=== PATIENT | female | born 1935 | race Caucasian/White ===

== ENCOUNTER 2023-11-01 12:36 | Emergency (ER) | payer OTHER, SELFPAY ==
[2023-11-01 12:41] VITALS: BP 144/95; BMI 27.2
[2023-11-01 13:34] LABS: % Basophils 0.5 % (0-2); % Eosinophils 1.2 % (0-6); % Immature Granulocytes 0.4 % (0-0.5); % Lymphocytes 18.1 % (20.5-51.1); % Monocytes 8.5 % (1.7-9.3); % Neutrophils 71.3 % (42.2-75.2); Absolute Basophils 0.1 10^3/uL (0-0.2); Absolute Eosinophils 0.1 10^3/uL (0-0.7); Absolute Lymphocytes 1.9 10^3/uL (1.2-3.4); Absolute Monocytes 0.9 10^3/uL (0.1-0.6); Absolute Neutrophils 7.5 10^3/uL (1.4-6.5); Hematocrit 38.1 % (37.0-47.0); Hemoglobin 13.5 g/dL (12.0-16.0); Mean Corp Hgb Conc. 35.4 g/dL (33.0-37.0); Mean Corpuscular Volume 90.3 fL (81.0-99.0); Mean Platelet Volume 11.7 fL (7.4-10.4); Nucleated Red Blood Cells % 0 %; Platelet Count 142 10^3/uL (130-400); Red Blood Cell Count 4.22 10^6/uL (4.20-5.40); Red Cell Dist. Width 13.5 % (11.5-14.5); White Blood Cell Count 10.6 10^3/uL (4.8-10.8)
--- NOTE | 2023-11-01 13:37 | ED.GENMED ---
History of Present Illness
General
Chief Complaint: Dizziness
Source: patient and family
Exam Limitations: none
Time Seen by Provider: 11/01/23 13:37
Nursing documentation reviewed up to this point in time: agreed with
Travel History
Have you had any contact with someone who has COVID-19?: No
Do you have any symptoms of coronavirus? Fever > 100 degrees, chills, cough, shortness of breath, sore throat, loss of taste or smell, muscle aches, or headache?: No
History of Present Illness
History of Present Illness:
88-year-old female from [facility] where she has her own room, with history of A-fib states she awakened in middle of night with right side neck 'soreness,' got up felt dizzy, walked to and from bathroom feeling 'a little unsteady' went
back to bed and slept. Got up this a.m. had breakfast and around 8:30 felt dizzy again while walking in her home. Dizziness lasting no more than a minute. She has had no dizziness since but right side neck still sore.
Denies CP, SOB, abd pain, n/v/d/c. Appetite has been good.
Past History
Past History
ED Past Medical History: Arrthythmia (a fib)
ED Past Surgical History: None
Social History
Tobacco: Non-smoker
Alcohol: None
Personal:
Living: assisted living
Review of Systems
Review of Systems
Allergies reviewed?: Yes
All Other Systems: ROS reviewed and negative except as documented in HPI and ROS
Constitutional: Denies fever or fatigue
EENT: Denies sore throat
Respiratory: Denies trouble breathing
Cardiac: Denies chest pain, diaphoresis, palpitations or syncope
ABD/GI: Denies abdominal pain, nausea, vomiting, diarrhea, bloody stools, black stools or anorexia
: Denies dysuria, frequency, difficulty voiding or urgency
Musculoskeletal: Reports neck pain; Denies edema or back pain
Skin: Reports no symptoms
Neurological: Reports dizzy (2 episodes dizziness in past 12 hours lasting about a minute, none since 8:30 this a.m.); Denies headache, weakness or numbness
Phy Exam
Physical Exam
Physical Exam:
GENERAL: No acute distress. A&Ox3.
CONSTITUTIONAL: Afebrile.
EYES: PERRL, conjunctivae normal, no nystagmus
Neck: Supple
ENMT: moist mucus membranes, Pharynx nl, TMs normal
RESPIRATORY: Regular respirations, nonlabored, lungs clear.
CARDIOVASCULAR: Regular rate and rhythm, no murmurs, no rubs.
GI: Soft, nontender, normal BS
MUSCULOSKELETAL: Tender to palpate right neck ST. No spinal bony tenderness. Full ROM with aggravation of pain more when rotating head to right. Moves with ease. Well perfused. No edema.
SKIN: Warm, dry, pink
PSYCH: Normal mood and affect. Well kept, interactive and appropriate
NEUROLOGIC: Awake, alert and oriented. Speech clear. CN 2-10 intact. Finger to nose intact. No focal neurological deficits
Course
Orders/Labs/Results
Orders:
Orders
11/01/23 12:40
Electrocardiogram (*1) Urgent
Reason for Study: Other
Other Reason for Exam: Possible Stroke
Cardiac Monitoring- Treatment ONCE
Vital Signs As Directed
Frequency: Other
Weight As Directed
Frequency: Once
Comment: ZERO STRETCHER SCALE FOR ACCURATE WEIGHT
11/01/23 12:41
EKG- Treatment ONCE
11/01/23 13:05
Complete Blood Count/With Diff Urgent
Comprehensive Metabolic Panel Urgent
Troponin I Urgent
11/01/23 13:57
CT Head W/o Iv Contrast Urgent
Comment:
Reason For Exam: episode dizziness, on eliquis
11/01/23 13:58
Urinalysis Reflex To Culture Urgent
Date Specimen was Collected: 11/01/23
Time Specimen was Collected: 13:57
Urine Microscopic Reflex Cult Urgent
Urine Culture Urgent
AMRIK Source: U
Specimen Description:
Date Specimen was Collected: 11/01/23
Time Specimen was Collected: 13:57
11/01/23 16:00
VANCOMYCIN Pharmacy to Dose [VANCOCIN Pharmacy to Dose] 1 each Pharmacy To Prepare [Call Pharmacy To Prepare] 0 ml IV PER PROTOCOL
Abnormal Lab Results
11/01/23 11/01/23
13:05 13:58
MCH 32.0 H pg
(27.0-31.0)
MPV 11.7 H fL
(7.4-10.4)
Absolute Neuts (auto) 7.5 H 10^3/uL
(1.4-6.5)
Absolute Monos (auto) 0.9 H 10^3/uL
(0.1-0.6)
Lymphocytes % 18.1 L %
(20.5-51.1)
BUN 18 H mg/dl
(7-17)
Glucose 121 H mg/dl
(70-99)
Leukocyte Esterase Rfl 1+ A
(Negative)
11/01/23 13:05
11/01/23 13:05
Vital Signs
Initial and Last Documented VS:
Initial Vital Signs
Temp Pulse Resp BP Pulse Ox
98.2 F 88 17 144/95 98
11/01/23 12:41 11/01/23 12:41 11/01/23 12:41 11/01/23 12:41 11/01/23 12:41
Last Documented Vital Signs
Temp Pulse Resp BP Pulse Ox
98.2 F 88 17 144/95 98
11/01/23 12:41 11/01/23 12:41 11/01/23 12:41 11/01/23 12:41 11/01/23 12:41
MDM/Problems Addressed
Differential Diagnosis Includes:
BPPV,
MDM/Problems Addressed:
88-year-old female from [facility] where she has her own room, with history of A-fib states she awakened in middle of night with right side neck 'soreness,' got up felt dizzy, walked to and from bathroom feeling 'a little unsteady' went
back to bed and slept. Got up this a.m. had breakfast and around 8:30 felt dizzy again while walking in her home. Dizziness lasting no more than a minute. She has had no dizziness since but right side neck still sore.
Patient had a dentist appointment yesterday and was sitting in a dental chair for a long period of time having her bottom teeth cleaned.
Denies CP, SOB, abd pain, n/v/d/c. Appetite has been good.
EKG: A-fib, rate 90
2:00 PM
CBC normal
CMP normal
UA unremarkable
3:[address] without contrast radiology report read: IMPRESSION:
1. No acute intracranial abnormalities appreciated.
2. Mild atrophy and moderate suspected chronic small vessel change.
Right neck pain is mostly from muscle strain from staying in a prolonged position while having her teeth cleaned yesterday.
Pt OOB and ambulating well with normal gait.
Stable for discharge.
*Critical Care Note
Total Time (30-74mins, 75-104mins- exclusive of procedures): Not Applicable
ED Attending Note
-
Portions of this chart may have been created with voice recognition software.� Occasional wrong word or��sound alike� substitutions may have occurred due to the inherent limitations of voice recognition software.
Discharge Plan
Departure
Patient Disposition: Home (Routine Discharge)
Date of Disposition: 11/01/23
Time of Disposition: 15:33
Patient with high blood pressure during this ER visit?: No
Condition: Good
Discharge Problem:
Episode of dizziness, Neck muscle strain
Instructions: Cervical Muscle Strain, Dizziness
Referrals:
Jacqueline Burgos [Other] - As needed
UNKNOWN - PT DOES,NOT KNOW [Family Provider] -
Activity Restrictions/Additional Instructions:
As we discussed, your workup here today shows nothing worrisome.
Interventions
Interventions:
*Risk Screen - Suicide Last Done: 11/01/23 12:41
*General Assessment Last Done: 11/01/23 12:41
*Neglect/Abuse Screening Last Done: 11/01/23 12:41
ED- Fall Risk Assessment Last Done: 11/01/23 15:54
*ED COVID-19 Vaccine History Last Done: 11/01/23 12:41
*Nursing Disposition Last Done: 11/01/23 15:54
ED- Neurological Assessment Last Done: 11/01/23 12:51
Discharge Date and Time
Discharge Date/Time: 11/01/23 15:55
Print Language: TELUGU
[2023-11-01 13:50] LABS: ALT (SGPT) 19 U/L (0-35); AST (SGOT) 21 U/L (14-36); Alkaline Phosphatase 101 U/L (38-126); Blood Urea Nitrogen 18 mg/dl (7-17); Calcium 9.3 mg/dl (8.4-10.2); Carbon Dioxide 27 mmol/L (22-30); Chloride 103 mmol/L (98-107); Estimated Creatinine Clearance 39 ml/min; Glucose 121 mg/dl (70-99); Potassium 3.7 mmol/L (3.5-5.1); Sodium 139 mmol/L (135-145); Total Bilirubin 0.9 mg/dl (0.2-1.3); Total Protein 6.6 g/dl (6.3-8.2); eGFR 54.53
[2023-11-01 13:59] LABS: Troponin I < 0.012 ng/ml
[2023-11-01 14:19] LABS: Urine Albumin Negative (Neg - Trace); Urine Bilirubin Negative (Negative); Urine Character Clear (Clear); Urine Color Yellow; Urine Glucose Negative (Negative); Urine Ketone Negative (Negative); Urine Leukocyte 1+ (Negative); Urine Nitrite Negative (Negative); Urine Occult Blood Negative (Negative); Urine Specific Gravity 1.005 (<1.030); Urine Urobilinogen Negative (Neg - 1+)
[2023-11-01 15:05] LABS: Urine Amorphous Seen; Urine Mucus Few
[2023-11-01 15:06] LABS: Urine Granular Cast 0-2 /LPF (0)
[2023-11-01 15:09] LABS: Urine Red Blood Cell 0-2 /HPF (0-2); Urine White Cell 0-2 /HPF (0-5)
== END 2023-11-01 15:55 | disposition home or self-care (01) ==
LOC: EMR 12:36
PROVIDERS: Registered Nurse; EMERGENCY PHYSICIAN Emergency Medicine
DX: S16.1XXA Strain of muscle, fascia and tendon at neck level, initial encounter (principal); Y93.01 Activity, walking, marching and hiking; R42 Dizziness and giddiness; I48.91 Unspecified atrial fibrillation; Z79.01 Long term (current) use of anticoagulants
CPT/HCPCS: 99284; 70450; 80053; 81003; 81015; 84484; 85025; 87086; 93005

== ENCOUNTER 2024-05-26 12:49 | Inpatient (IN) | payer OTHER, SELFPAY ==
[2024-05-26] VITALS (21 sets, daily range): BP systolic 104–172; BP diastolic 64–134; BMI 26.6
--- NOTE | 2024-05-26 07:45 | ED.GENMED ---
History of Present Illness
General
Chief Complaint: Heart Rate Problem
Source: patient and ambulance crew
Exam Limitations: none
Time Seen by Provider: 05/26/24 07:36
History of Present Illness
History of Present Illness:
89-year-old female presents emergency department due to heart racing. She has a history of atrial fibrillation. She presented via EMS with rapid atrial fibrillation.
Past History
Past History
ED Past Medical History: Arrthythmia (a fib)
ED Past Surgical History: None
Social History
Tobacco: Non-smoker
Alcohol: None
Personal:
Living: assisted living
Phy Exam
Physical Exam
Physical Exam:
Physical Exam
General: no apparent distress, not acutely ill
Neck: supple. no meningeal signs. normal posterior pharynx
Heart: s1/s2 tachycardia, irregular rhythm, no murmur. equal radial
pulses.
HEENT: Pupils equal round reactive to light, EOMI
Lungs: no acute respiratory distress. clear bilaterally
Abdomen: normal bowel sounds. not tender. no CVAT
Neuro: alert and oriented. no focal neurological deficits cranial nerves II through XII intact
Skin: no rash
Psychiatric: well kept. interactive and cooperative
Extremities: no edema. no calf tenderness. negative homans. good distal pulses
Course
Orders/Labs/Results
Orders:
Orders
05/26/24 07:37
Electrocardiogram (*1) Urgent
Reason for Study: Chest Pain
EKG- Treatment ONCE
05/26/24 07:53
Basic Metabolic Panel Urgent
Complete Blood Count/With Diff Urgent
NT-proBNP Urgent
PTT Urgent
TSH Urgent
Comment: ADD ON
Troponin I Urgent
Diltiazem 125 mg/125 ml Nss [Cardizem] 125 mg in 125 ml IV NOW
Initial dose in mg/hr, then titrate:: 5
Titrate to keep:: Heart rate 80-100 bpm
Titrate by mg/hr:: 5 mg/hr
Frequency of titrations (minutes):: 15
Maximum dose in mg/hr:: 15
Diltiazem HCl [Cardizem] 5 mg IV NOW STA
05/26/24 12:30
Admit/Transfer Patient As Directed
Co-Sign Provider:
Level of Care: Inpatient admission
Assign to:: IVU
Physician / Group: Shirin
Diagnosis: Rapid Atrial Fib
Reason for Hospitalization: Rate control, cardiology consult
Expected length of stay greater than two midnights?: Yes
ELOS- Estimated Length of Stay in days: 2
I certify the patient meets the requirements for IP care: Yes
05/26/24 12:31
PRN Pain Medication Management As Directed
May give lesser potent ordered pain med per pt: Yes
preference::
Protocol:: Medication orders for pain may be administered in a
manner that supports deferring to patient preference
when the pt is:
- Requesting an ordered lesser potent pain medication.
Least to most potent pain medications are defined
as: acetaminophen < NSAID < tramadol < opioids
(morphine, oxycodone, hydromorphone).
- Requesting a lesser dose of the same medication IF
ORDERED.
- Requesting a less intrusive route of administration
if both routes are prescribed by the provider (PO <
IV).
05/26/24 12:32
Code Status As Directed
Resuscitation Status: Full Code
05/26/24 12:34
Add On- LAB Routine
Tests Added?: TSH
Abnormal Lab Results
05/26/24
07:53
MCH 32.3 H pg
(27.0-31.0)
RDW 14.6 H %
(11.5-14.5)
Plt Count 125 L 10^3/uL
(130-400)
MPV 12.4 H fL
(7.4-10.4)
BUN 19 H mg/dl
(7-17)
Glucose 116 H mg/dl
(70-99)
05/26/24 07:53
05/26/24 07:53
Vital Signs
Initial and Last Documented VS:
Initial Vital Signs
Temp
97.8 F
05/26/24 07:29
Last Documented Vital Signs
Temp Pulse Resp BP Pulse Ox
97.8 F 110 14 168/102 97
05/26/24 07:29 05/26/24 11:15 05/26/24 11:15 05/26/24 11:30 05/26/24 11:15
MDM/Problems Addressed
Differential Diagnosis Includes:
Atrial fibrillation, electrolyte abnormality
MDM/Problems Addressed:
89-year-old female with rapid atrial fibrillation. Diltiazem drip. Admit to hospitalist.
Chronic conditions affecting care: Arrhythmia
Acute Exacerbation and/or Progression of Chronic Illness: Arrhythmia
*Pulse Oximetry
Patient hypoxic: no
*EKG
Interpreted by ED Provider?: Yes
EKG Intrepretation Date: 05/26/24
EKG Intrepretation Time: 07:42
Interpretation: abnormal
Comparison EKG: no comparison EKG present
Heart Rate: 118
Rate: tachycardiac
Rhythm: a-fib
[place]: normal axis
Interval: normal interval
QRS Pattern: normal QRS
Ischemia: no ischemia
*Affirmative Action Officer Interpretation
Rate: tachycardiac
Interpretation: abnormal
Heart Rate: 120
Rhythm: a-fib
*Critical Care Note
Total Time (30-74mins, 75-104mins- exclusive of procedures): 30
comment:
Critical care statement: A total of 30 minutes of critical care time was provided for this patient. This includes management of unstable vital signs, evaluation of the patient at bedside, reviewing the patient's pertinent medical records, discussion
with consultants, review of old EKGs and review of pertinent medical records. This time with separate from time utilized to perform the aforementioned documented procedures
Patient Management
Social determinants of health affecting care: Living situation
Discussion with other providers: Hospitalist
Escalation/DeEscalation of care consider admission/obs:
Admit indicated
ED Attending Note
-
Portions of this chart may have been created with voice recognition software.� Occasional wrong word or��sound alike� substitutions may have occurred due to the inherent limitations of voice recognition software.
Discharge Plan
Departure
Patient Disposition: Admit
Date of Disposition: 05/26/24
Time of Disposition: 11:15
Admit to: IMU
Presentation/result/management discussed w/ accepting MD/DO: Hospitalist
Patient with high blood pressure during this ER visit?: Yes
Condition: Fair
Discharge Problem:
Atrial fibrillation with RVR
Prescriptions:
No Action
diltiazem HCl 180 mg capsule,extended release 24hr
180 mg PO DAILY
simvastatin 10 mg tablet
10 mg PO DAILY
metoprolol tartrate 50 mg tablet
50 mg PO BID
furosemide 20 mg tablet
20 mg PO DAILY
Eliquis 5 mg tablet
5 mg PO BID
Referrals:
UNKNOWN - PT DOES,NOT KNOW [Family Provider] -
Discharge Date and Time
Print Language: [place] ISLAND[place]
[2024-05-26] MEDS: CARDIZEM 125 IV ×2 (08:01→17:41)
[2024-05-26] MEDS: CARDIZEM 5 MG IV (08:01)
[2024-05-26 08:12] LABS: % Basophils 1.2 % (0-2); % Immature Granulocytes 0.2 % (0-0.5); % Lymphocytes 37.6 % (20.5-51.1); % Monocytes 9.2 % (1.7-9.3); % Neutrophils 47.8 % (42.2-75.2); Absolute Basophils 0.1 10^3/uL (0-0.2); Absolute Eosinophils 0.2 10^3/uL (0-0.7); Absolute Monocytes 0.5 10^3/uL (0.1-0.6); Absolute Neutrophils 2.5 10^3/uL (1.4-6.5); Hematocrit 43.9 % (37.0-47.0); Mean Corp Hgb Conc. 34.2 g/dL (33.0-37.0); Mean Corpuscular Hgb 32.3 pg (27.0-31.0); Mean Corpuscular Volume 94.6 fL (81.0-99.0); Mean Platelet Volume 12.4 fL (7.4-10.4); Nucleated Red Blood Cells % 0 %; Platelet Count 125 10^3/uL (130-400); Red Blood Cell Count 4.64 10^6/uL (4.20-5.40); Red Cell Dist. Width 14.6 % (11.5-14.5); White Blood Cell Count 5.2 10^3/uL (4.8-10.8)
[2024-05-26 08:16] LABS: APTT 27.9 Sec (23.4-35.0)
[2024-05-26 08:26] LABS: Blood Urea Nitrogen 19 mg/dl (7-17); Calcium 9.3 mg/dl (8.4-10.2); Carbon Dioxide 25 mmol/L (22-30); Chloride 107 mmol/L (98-107); Estimated Creatinine Clearance 42 ml/min; Glucose 116 mg/dl (70-99); Sodium 141 mmol/L (135-145); eGFR > 60.00
[2024-05-26 08:33] LABS: NT-proBNP 2090 pg/ml; Troponin I < 0.012 ng/ml
--- NOTE | 2024-05-26 12:34 | HPS.HSE ---
Family Physician
-
Family Physician: NOT KNOW UNKNOWN - PT DOES
Chief Complaint
-
Chest pain
History of Present Illness
89-year-old female woke up this morning with sharp substernal chest pain. Mild shortness of breath. Symptoms lasted for 10 minutes. She called 911.
Denies history of the same in the past.
I spoke with patient's daughter on the phone and she mentioned that her the patient's relations manager recently increased the diltiazem dose to 240 mg daily. However the patient ran out and likely had extra supply of the 180 mg which she was taking
prior to coming in. Daughter also also mentioned that she is concerned that her mother may have forgotten to take some doses as she does recently have memory impairment.
Medical History
Past Medical History
Past Medical History: Reports Other
Additional Past Medical History:
Atrial fibrillation
Essential hypertension
Hyperlipidemia
hx pelvic fracture
Past Surgical History: Reports None
Social History
Tobacco: Non-smoker
Alcohol: Daily (2 to 4 ounces of wine daily)
Drug: None
Personal: Single
Living: Assisted Living
Employment: Not Employed
Family History
Family History: Not pertinent
Allergies / Home Medications
Allergies reflects when Allergies were last updated in [facility].
Home Medications with original date entered in [facility]
Allergy/Medication List:
Allergies
Allergy/AdvReac Type Severity Reaction Status Date / Time
No Known Allergies Allergy Verified 05/26/24 07:37
Home Medications
apixaban 5 mg tablet (Eliquis) 5 mg PO BID Blood Clot Prevention/Tx 05/26/24
diltiazem HCl 180 mg capsule,extended release 24 hr 180 mg PO DAILY Arrhythmia/BP 05/26/24
furosemide 20 mg tablet 20 mg PO DAILY Fluid Retention/Swelling 05/26/24
metoprolol tartrate 50 mg tablet 50 mg PO BID Heart Disease/BP 05/26/24
simvastatin 10 mg tablet 10 mg PO DAILY High Cholesterol 05/26/24
Review of Systems
-
History Source: Patient
A 12 point ROS was completed and negative except as noted: Yes
Cardiac: Reports Chest Pain
Physical Exam
Vital Signs
Vital Signs
Temp Pulse Resp BP Pulse Ox
97.8 F 110 14 168/102 97
05/26/24 07:29 05/26/24 11:15 05/26/24 11:15 05/26/24 11:30 05/26/24 11:15
Physical Exam
General: Well Developed, Well Nourished, No Apparent Distress and Comfortable
HEENT: Anicteric and Moist mucous membranes
Respiratory: Clear
Cardiac: S1/S2, Irregular Rhythm and Tachycardia
Breast: Deferred by me
GI: Soft, Non Tender and Non Distended
Genito-urinary: Deferred by me
Musculoskeletal: No Clubbing, No Cyanosis and No Edema
Skin: Warm and Dry
Neuro: Awake and Alert
Hematologic/Lymphatic: No Lymphadenopathy
Psych: Calm
Laboratory Results
-
05/26/24 07:53
05/26/24 07:53
Laboratory Results
APTT 27.9 Sec (23.4-35.0) 05/26/24 07:53
Total Bilirubin Cancelled 05/26/24 07:53
AST Cancelled 05/26/24 07:53
ALT Cancelled 05/26/24 07:53
Alkaline Phosphatase Cancelled 05/26/24 07:53
Troponin I < 0.012 ng/ml 05/26/24 07:53
Impression/Plan
-
Rapid atrial fibrillation -suspect baseline paroxysmal atrial fibrillation. Admit to IVU, continue IV Cardizem infusion, consult cardiology. Check TSH.
Trigger for rapid atrial fibrillation possibly due to missed doses of Cardizem, also possibly due to inadequate dosage as she is supposed to be on 240 mg daily but according to family was taking 180 mg daily due to the fact that she did not have a
refill on the higher dose.
Discussed importance of compliance with anticoagulation with Eliquis for stroke prophylaxis with patient's daughter in great detail.
Daughter plans to ensure better compliance moving forward once she is discharged.
Patient does live in longterm facility but the facility requires her to take her own medications.
Essential hypertension with hypertensive urgency -resume metoprolol, diltiazem, furosemide.
Hyperlipidemia - Zocor.
Memory impairment -needs formal testing for dementia once discharge. Discussed with daughter.
Full code
[2024-05-26] MEDS: LOPRESSOR 50 MG PO ×2 (13:09→19:57)
--- NOTE | 2024-05-26 13:37 | CON.CAR ---
Addendum entered and electronically signed by Osvaldo Teran MD 05/26/24 14:50:
I saw and examined the patient.
The RESIDENTIAL FIELD MANAGER or PA's note was reviewed and I agree with the note.
Comment: General: Well developed, well nourished in NAD.
Neck: Supple, no JVD, HJR, carotids +2 B/L, no bruits bilaterally.
Heart: Non displaced PMI, irregular, no murmurs, No S3, S4, no rubs.
Lungs: Scattered rhonchi
Extremities: No clubbing, cyanosis or edema bilaterally.
Neuro: Grossly nonfocal, awake, alert and oriented x3.
She has a history of permanent A-fib on chronic Eliquis, chronic diastolic CHF, hyperlipidemia. She is followed at [facility] by Dr. Newman. She woke up 6 AM this morning with right-sided chest pain and noted to be in rapid A-fib.
She will be admitted. Will increase Cardizem to 240 mg daily and continue Lopressor. May need to consider amiodarone for rate control. Continue Eliquis. Discussed with daughter at bedside.
Original Note:
Consultation
Consultation Request
Date/Time Consultation Performed: 05/26/24
Requesting Provider: Dr. Carpio
Performing Provider: [place] PA-C for Dr. Teran
Reason for Consultation: afib with RVR
Medical History
-
Chief Complaint: CP
History of Present Illness:
Patient is an 89 yo F with PMH of permanent atrial fibrillation, chronic OAC with eliquis, chronic diastolic CHF, HLD who is followed by Dr. Newman of [facility] cardiology. She reports she just saw him last Saturday and was feeling well, was noted to be in
afib during visit. Reports this morning around 6AM woke up with R sided chest pain. Reports 'I have never had a heart attack, but assumed that must be what it feels like' and came to ER. She was noted to be in afib with RVR. Reports currently chest
pain free, unclear what made the pain go away. Denies associated radiation of pain to back, neck, jaw, arms, N/V, diaphoresis/clamminess, SOB, lightheadedness. Reports has never had pain like that before. Trop negative x1. Cardiology consulted for
evaluation.
PMH:
Atrial fibrillation, suspected persistent
Chronic OAC with eliquis
Chronic diastolic CHF
Form of dextrocardia
HTN
HLD
Former smoker
Past Medical History
Past Medical History: Other (in HPI)
Social History
Tobacco: Former Smoker
Alcohol: Occasional
Living: Assisted Living (in independent apartment)
Family History
Family History: Early CAD (in father)
Allergies / Home Medications
Allergy/AdvReac Type Severity Reaction Status Date / Time
No Known Allergies Allergy Verified 05/26/24 07:37
�Medication �Instructions �Recorded �Confirmed �Type
apixaban 5 mg tablet (Eliquis) 5 mg PO BID Blood Clot 05/26/24 05/26/24 History
Prevention/Tx
diltiazem HCl 180 mg 180 mg PO DAILY Arrhythmia/BP 05/26/24 05/26/24 History
capsule,extended release 24 hr
furosemide 20 mg tablet 20 mg PO DAILY Fluid 05/26/24 05/26/24 History
Retention/Swelling
metoprolol tartrate 50 mg tablet 50 mg PO BID Heart Disease/BP 05/26/24 05/26/24 History
simvastatin 10 mg tablet 10 mg PO DAILY High Cholesterol 05/26/24 05/26/24 History
Review of Systems
-
History Source: Patient and Family
All other systems: Negative unless noted
Physical Exam
Vital Signs
Temp Pulse Resp BP Pulse Ox
97.8 F 110 14 168/102 97
05/26/24 07:29 05/26/24 11:15 05/26/24 11:15 05/26/24 11:30 05/26/24 11:15
Lab Results
05/26/24 07:53
05/26/24 07:53
Troponin I < 0.012 ng/ml 05/26/24 07:53
Kxx-[id number] Pept 2090 pg/ml 05/26/24 07:53
Physical Exam
General: No Apparent Distress and Comfortable
HEENT: Normocephalic, Anicteric and Moist Mucous Membranes
Respiratory: Clear and Non Labored Respirations
Cardiac: S1/S2 and Irregular Rhythm
GI: Soft, Non Tender, Non Distended and Normal Bowel Sounds
Musculoskeletal: No Clubbing, No Cyanosis and No Edema
Skin: Warm and Dry
Neuro: AO x 3
Impression / Plan
-
Primary Guillotine Trimmer: Dr. Newman of [facility]
Assessment:
Presentation for R sided chest pain
Negative troponin x1
permanent atrial fibrillation, now with RVR
chronic OAC with eliquis
chronic diastolic CHF
Form of dextrocardia
HTN
HLD
Former smoker
ECHO 12/25/23 at [facility]: EF 55 to 60%, mild MR, mild , mild to moderate TR, no pulmonary hypertension. Patient with dextrocardia, situs solitus
Plan:
-Patient presented to ER for evaluation of right sided chest pain, now resolved
-Negative troponin x 1. Trend
-Noted to be in atrial fibrillation with rapid ventricular response. Her atrial fibrillation is permanent. currently on IV cardizem gtt @10. wean off as able. Will increase OP diltiazem to 240 mg daily. Records reviewed from Dr. Newman including
office note 05/19/24, echo 12/25/23. she was supposed to increase her dose to 240 mg daily as an outpatient however only did this for 1 month and then did not get a refill and went back to 180 mg daily. Continue Lopressor 50 mg twice daily.
-Continue Eliquis, reports no missed doses recently
-Does not appear to be in acute heart failure. Continue outpatient Lasix 20 mg p.o. daily
-Check CVE. continue statin
-Discussed with patient and daughter at bedside
Data Reviewed
-
EKG: Tracing Personally Visualized and interpreted
Medical Tests (Nuc Med, Echo etc): Report Reviewed by me
Labs: Labs Reviewed by me
Old Records: Requested and Reviewed
[2024-05-26 16:47] LABS: TSH 1.43 uIU/ml (0.47-4.68)
--- NOTE | 2024-05-26 17:28 | PTCARENOTE ---
patient was admitted from ER, monitor place Afib, HR in the 60's, 70's, BP 132/87. IV Cardizem @ 10ml/hr, informed La DYE of HR, will decrease IV Cardizem to 5ml/hr and keep on overnight and will start po Cardizem in am. patient has no
complaints. oriented patient to room and surroundings. dqaughter in law in room, helping patient order dinner. call aragon within reach.
[2024-05-26 17:46] LABS: Troponin I < 0.012 ng/ml
[2024-05-26] MEDS: ELIQUIS 5 MG PO (19:57)
--- NOTE | 2024-05-27 01:48 | PTCARENOTE ---
Pt in AFib with HR 70-80 with Cardizem gtt 5ml/hr. Noted multiple pauses 2.02-2.12sec on monitor with HR dropping to low 50s at times. DOMESTIC CLEANER made aware, Cardizem gtt order changed to 2.5 ml/hr.
[2024-05-27 04:14] VITALS: BP 137/92
[2024-05-27 04:25] VITALS: BMI 26.0
[2024-05-27 04:38] LABS: % Basophils 0.6 % (0-2); % Eosinophils 4.7 % (0-6); % Immature Granulocytes 0.2 % (0-0.5); % Lymphocytes 35.6 % (20.5-51.1); % Monocytes 9.1 % (1.7-9.3); % Neutrophils 49.8 % (42.2-75.2); Absolute Eosinophils 0.2 10^3/uL (0-0.7); Absolute Lymphocytes 1.8 10^3/uL (1.2-3.4); Absolute Monocytes 0.5 10^3/uL (0.1-0.6); Absolute Neutrophils 2.6 10^3/uL (1.4-6.5); Hematocrit 38.3 % (37.0-47.0); Mean Corp Hgb Conc. 33.9 g/dL (33.0-37.0); Mean Corpuscular Hgb 31.9 pg (27.0-31.0); Mean Corpuscular Volume 93.9 fL (81.0-99.0); Mean Platelet Volume 11.9 fL (7.4-10.4); Nucleated Red Blood Cells % 0 %; Platelet Count 132 10^3/uL (130-400); Red Blood Cell Count 4.08 10^6/uL (4.20-5.40); Red Cell Dist. Width 14.4 % (11.5-14.5); White Blood Cell Count 5.1 10^3/uL (4.8-10.8)
[2024-05-27 05:22] LABS: Blood Urea Nitrogen 13 mg/dl (7-17); Calcium 9.1 mg/dl (8.4-10.2); Carbon Dioxide 27 mmol/L (22-30); Chloride 107 mmol/L (98-107); Estimated Creatinine Clearance 47 ml/min; Glucose 109 mg/dl (70-99); Potassium 3.5 mmol/L (3.5-5.1); Sodium 141 mmol/L (135-145); eGFR > 60.00
[2024-05-27 07:43] VITALS: BP 160/94
[2024-05-27 07:44] VITALS: BP 160/94
[2024-05-27 08:16] VITALS: BP 153/98
[2024-05-27] MEDS: KLOR-CON 20 MEQ PO (08:43)
[2024-05-27] MEDS: LOPRESSOR 50 MG PO (08:43)
[2024-05-27] MEDS: LASIX 20 MG PO (08:44)
[2024-05-27] MEDS: CARDIZEM CD 240 MG PO (08:44)
[2024-05-27] MEDS: ELIQUIS 5 MG PO (08:44)
--- NOTE | 2024-05-27 08:48 | W.PN.CARDCBS ---
Addendum entered and electronically signed by Osvaldo Teran MD 05/27/24 10:13:
I saw and examined the patient.
The ELECTRICAL ESTIMATOR or PA's note was reviewed and I agree with the note.
Comment: General: Well developed, well nourished in NAD.
Neck: Supple, no JVD, HJR, carotids +2 B/L, no bruits bilaterally.
Heart: Non displaced PMI, irregular, no murmurs, No S3, S4, no rubs.
Lungs: Scattered rhonchi
Extremities: No clubbing, cyanosis or edema bilaterally.
Neuro: Grossly nonfocal, awake, alert and oriented x3.
Heart rate control reasonable. Will stop IV Cardizem drip. Continue on Lopressor and Cardizem. Follow-up with Dr. Newman. Stable cardiology status for discharge
Original Note:
Today's Communication / Plan
-
stop IV cardizem gtt.
lopressor 50mg BID
cardizem cd dose increased to 240mg daily
continue eliquis
will arrange OP cardiac follow up with Dr. Newman
ok for DC today from cardiac standpoint
Impression / Plan
-
Primary Urban Planning Professor: Dr. Newman of [facility]
Assessment:
Presentation for R sided chest pain
Negative troponin x1
permanent atrial fibrillation, now with RVR
chronic OAC with eliquis
chronic diastolic CHF
Form of dextrocardia
HTN
HLD
Former smoker
ECHO 12/25/23 at [place]: EF 55 to 60%, mild MR, mild , mild to moderate TR, no pulmonary hypertension. Patient with dextrocardia, situs solitus
Plan:
-Patient presented with right-sided chest pain, resolved and without recurrence
-Troponins serially negative. Pain appears noncardiac
-She has permanent atrial fibrillation and A-fib with rapid on arrival to ER, now improved. Wean off Cardizem drip today. Continue p.o. Lopressor 50 mg twice daily and increase p.o. diltiazem from 180 mg daily to to 40 mg daily
-Continue Eliquis
-Does not appear to be in acute heart failure. Continue outpatient Lasix 20 mg p.o. daily
-continue statin
-will arrange OP cardiac follow up with Dr. Newman
-ok for DC to home today from cardiac standpoint if HRs remain controlled on po regimen
-d/w nursing
Progress Note - Urban Planning Professor
Subjective
Date of Service: May 27, 2024
No issues overnight. No recurrence of chest pain
Objective
Labs:
05/27/24 04:22
05/27/24 04:22
Labs
Hgb 13.0 g/dL (12.0-16.0) 05/27/24 04:22
Hct 38.3 % (37.0-47.0) 05/27/24 04:22
Plt Count 132 10^3/uL (130-400) 05/27/24 04:22
APTT 27.9 Sec (23.4-35.0) 05/26/24 07:53
Sodium 141 mmol/L (135-145) 05/27/24 04:22
Potassium 3.5 mmol/L (3.5-5.1) 05/27/24 04:22
BUN 13 mg/dl (7-17) 05/27/24 04:22
Creatinine 0.8 mg/dL (0.6-1.0) 05/27/24 04:22
Glucose 109 mg/dl (70-99) H 05/27/24 04:22
Troponins
05/26/24 05/26/24
07:53 17:00
Troponin I < 0.012 < 0.012
Vital Signs and I&O:
Vital Signs
Temp Pulse Resp BP Pulse Ox
98.2 F 82 16 153/98 96
05/27/24 07:44 05/27/24 08:44 05/27/24 07:44 05/27/24 08:44 05/27/24 07:44
Vital Signs
Temp Pulse Resp BP Pulse Ox
98.2 F 82 16 153/98 96
05/27/24 07:44 05/27/24 08:44 05/27/24 07:44 05/27/24 08:44 05/27/24 07:44
Intake & Output
05/25/24 05/26/24 05/27/24 05/28/24
07:59 07:59 07:59 07:59
Intake Total 150 / 150
Balance 150 / 150
Physical Exam
Physical Exam
GEN: No distress, awake, alert, oriented x3
HEENT: supple, anicteric, mmm, eomi
LUNGS: CTA B/L, no wheezes/rales
CV: Irreg, S1/S2, no murmur
ABD: soft, BS+, NT/ND
EXT: No cyanosis, clubbing, edema
NEURO: Gross non-focal
SKIN: Warm, pink, dry. No rash
--- NOTE | 2024-05-27 09:24 | W.PN.HOSP.TC ---
Today's Communication/Plan
-
Discharge
Assessment / Plan
Assessment / Plan
Gen-AAOx3, NAD
HEENT-NC, AT, anicteric, clear oral mm
Neck-supple
CV-reg, no M, +S1/S2
Lungs-clear B/L
Abd-soft, NT, ND
Ext-no edema
Musculoskeletal-no cyanosis, clubbing
Skin-warm and dry
Neuro-grossly non-focal
Psych-calm, cooperative
Rapid paroxysmal atrial fibrillation - now rate controlled. -Continue current meds, okay to discharge as per cardiology. TSH normal. Outpatient follow-up.
Essential hypertension -blood pressure improved. Urgency resolved.
Hyperlipidemia -simvastatin.
Memory impairment -needs formal outpatient cognitive assessment. Discussed with family.
Full code
Dispo -medically stable for discharge today.
32 minutes spent in discharge process.
Anticipated Discharge: Today
Subjective/Interval History
-
Date of Service: May 27, 2024
Patient seen and examined. No complaints.
Objective Data
-
Labs:
Laboratory Results
05/27/24
04:22
WBC 5.1
Hgb 13.0
Hct 38.3
Plt Count 132
Sodium 141
Potassium 3.5
Chloride 107
Carbon Dioxide 27
BUN 13
Creatinine 0.8
Glucose 109 H
Calcium 9.1
Vital Signs:
Vital Signs
Temp Pulse Resp BP Pulse Ox
98.2 F 82 16 153/98 96
05/27/24 07:44 05/27/24 08:44 05/27/24 07:44 05/27/24 08:44 05/27/24 07:44
I&O
05/26/24 05/27/24 05/28/24
06:59 06:59 06:59
Intake Total 150 / 150
Balance 150 / 150
Review of Systems
-
History Source: Patient
All other systems: Reviewed and negative
--- NOTE | 2024-05-27 09:27 | W.DS.TRANS ---
DC Summary - [employer]
-
Discharge Instructions:
Sleep Apnea Risk Low
Discharge Diagnosis/Procedures Rapid atrial fibrillation
Diet Regular
Activity As tolerated
Driving Restrictions As prior to admission
Bathing Restrictions None
Instructions:
Stand-Alone Forms:
Changes to Home Medications: No
Discharge Medications:
DC Medications w/original date entered in [employer]
apixaban 5 mg tablet (Eliquis) 5 mg PO BID Blood Clot Prevention/Tx 05/26/24
furosemide 20 mg tablet 20 mg PO DAILY Fluid Retention/Swelling 05/26/24
metoprolol tartrate 50 mg tablet 50 mg PO BID Heart Disease/BP 05/26/24
simvastatin 10 mg tablet 10 mg PO DAILY High Cholesterol 05/26/24
diltiazem HCl 240 mg capsule,extended release 24 hr 240 mg PO DAILY #30 caps 05/27/24
Home Medication Changes
Pending Results: No
--- NOTE | 2024-05-27 09:44 | PTCARENOTE ---
received patient this am, monitor shows afib and confirmed with EKG that was ordered. IV Cardizem gtt. D/C'd and po Cardizem given as ordered. K 3.5 this am supplemented with Klor 20 meq. po. VSS. patient for discharge today.
[2024-05-27 11:03] VITALS: BP 147/87
--- NOTE | 2024-05-27 11:40 | PTCARENOTE ---
D/C instructions given to patient and daughter in law, both verbalizes understanding. INT D/C'd, telemetry D/C'd, personal belongings packed and sent home with patient. D/C to home via wc accompanied by vol. services.
--- NOTE | 2024-05-27 15:22 | CM ---
Pt. DCed prior to CM assessment.
Pt. was DC'ed to home without needs.
== END 2024-05-27 12:19 | disposition home or self-care (01) | DRG 309 ==
LOC: IVU 12:49
PROVIDERS: Physician Assistant; ADMITTING PHYSICIAN Hospitalist; CONSULT PHYSICIAN Internal Medicine Cardiovascular Disease; EMERGENCY PHYSICIAN Emergency Medicine
DX: I48.21 Permanent atrial fibrillation (principal); I50.32 Chronic diastolic (congestive) heart failure; I48.0 Paroxysmal atrial fibrillation; Z79.01 Long term (current) use of anticoagulants; I11.0 Hypertensive heart disease with heart failure; E78.00 Pure hypercholesterolemia, unspecified; Z87.891 Personal history of nicotine dependence; I16.0 Hypertensive urgency
CPT/HCPCS: 80048; 83880; 84443; 84484; 85025; 85730; 93005; 96374; 96376; 99291

== ENCOUNTER → 2025-03-03 11:51 | Outpatient (REF) | payer OTHER, SELFPAY ==
[2025-03-03 12:38] LABS: Hematocrit 38.3 % (37.0-47.0); Hemoglobin 13.0 g/dL (12.0-16.0); Mean Corp Hgb Conc. 33.9 g/dL (33.0-37.0); Mean Corpuscular Volume 89.3 fL (81.0-99.0); Nucleated Red Blood Cells % 0 %; Platelet Count 187 10^3/uL (130-400); Red Cell Dist. Width 15.7 % (11.5-14.5)
[2025-03-03 13:43] LABS: ALT (SGPT) 14 U/L (0-35); AST (SGOT) 18 U/L (14-36); Albumin 3.8 g/dl (3.5-5.0); Alkaline Phosphatase 87 U/L (38-126); Blood Urea Nitrogen 14 mg/dl (7-17); Calcium 9.4 mg/dl (8.4-10.2); Carbon Dioxide 25 mmol/L (22-30); Chloride 107 mmol/L (98-107); Digoxin 0.7 ng/ml (0.8-2.0); Glucose 111 mg/dl (70-99); HDL Cholesterol 44 mg/dl; LDL Cholesterol, Calculated 127 mg/dl; Potassium 3.5 mmol/L (3.5-5.1); Sodium 139 mmol/L (135-145); Total Protein 6.4 g/dl (6.3-8.2); Very Low Density Lipoprotein 23 mg/dl (0-30); eGFR > 60.00
== END ==
LOC: OLABHEARBC 11:51
PROVIDERS: ATTENDING PHYSICIAN Hospitalist
DX: I10 Essential (primary) hypertension (principal); I48.91 Unspecified atrial fibrillation; E78.5 Hyperlipidemia, unspecified; D64.9 Anemia, unspecified; R30.0 Dysuria
CPT/HCPCS: 36415; 80053; 80061; 80162; 83880; 85025